=== PATIENT | female | born 2000 ===

== ENCOUNTER 2018-10-02 23:04 | Emergency (ER) | payer SELFPAY ==
[2018-10-02 23:23] VITALS: PULSE 100
[2018-10-02] MEDS ORDERED: Albuterol 0.083% Inhal Sol (2.5 mg/3 mL) UD INH SCH (23:45)
--- NOTE | 2018-10-03 00:36 | C.PDOC ---
Time Seen by Provider: 10/02/18 23:24 Chief Complaint (Nursing): Rib Injury Past Medical History Vital Signs: Last Vital Signs Temp 99.0 F 10/02/18 23:21 Pulse 100 H 10/02/18 23:21 Resp 18 10/02/18 23:21 BP 103/62 10/02/18 23:21 Pulse Ox 98 10/02/18 23:21 Primary Care Provider: FAMILY PROVIDER,NO - Social History Hx Alcohol Use: No Hx Substance Use: No - Immunization History Hx Tetanus Toxoid Vaccination: No Hx Influenza Vaccination: No Hx Pneumococcal Vaccination: No ED Course And Treatment O2 Sat by Pulse Oximetry: 98 Disposition - Disposition Forms: [employer] (Setswana)
--- NOTE | 2018-10-03 00:40 | C.PDOC ---
History Of Present Illness 17 year old female presents to the ER with intermittent chest tightness and SOB for the past few weeks associated with cough "for a long time". Patient states she hit her left rib today with the corner of a drawer while opening it causing increased pain. Denies fever, sick contact, or recent travel. Time Seen by Provider: 10/02/18 23:24 Chief Complaint (Nursing): Rib Injury History Per: Patient History/Exam Limitations: no limitations Onset/Duration Of Symptoms: Days Current Symptoms Are (Timing): Still Present Location Of Pain: None Sick Contacts (Context): None Associated Symptoms: Cough, Other (SOB). denies: Fever Recent travel outside of the [place]: No Past Medical History Reviewed: Historical Data, Nursing Documentation, Vital Signs Vital Signs: Last Vital Signs Temp 99.0 F 10/02/18 23:21 Pulse 100 H 10/02/18 23:21 Resp 18 10/02/18 23:21 BP 103/62 10/02/18 23:21 Pulse Ox 98 10/02/18 23:21 Primary Care Provider: FAMILY PROVIDER,NO Family History: States: Unknown Family Hx - Social History Hx Alcohol Use: No Hx Substance Use: No - Immunization History Hx Tetanus Toxoid Vaccination: No Hx Influenza Vaccination: No Hx Pneumococcal Vaccination: No Review Of Systems Constitutional: Negative for: Fever, Chills ENT: Negative for: Nose Discharge, Nose Congestion Respiratory: Positive for: Cough, Shortness of Breath Musculoskeletal: Positive for: Other (Left rib pain) Physical Exam - Physical Exam Appears: Non-toxic Skin: Normal Color, Warm Head: Atraumatic, Normacephalic Eye(s): bilateral: Normal Inspection Oral Mucosa: Moist Chest: Symmetrical, Other (No tenderness, ecchymosis, crepitus, or erythema) Cardiovascular: Rhythm Regular Respiratory: Decreased Breath Sounds (Minimal), No Rales, No Rhonchi, Wheezing (Expiratory) Neurological/Psych: Oriented x3, Normal Speech ED Course And Treatment O2 Sat by Pulse Oximetry: 98 (room air) Pulse Ox Interpretation: Normal - Radiology CXR Interpretation: Yes: No Acute Disease. No: Infiltrates - Other Rad Left rib x-ray X-Ray: Interpreted by Me, Viewed By Me Interpretation: No acute fracture or dislocation Progress Note: Left rib x-ray ordered, results were negative. Pt with no PMHX o f Asthma with nocturnal cough, chest tightness intermittently, now with exp wheezes. Albuterol nebulizer x 2 and prednisone administered. Patient is resting comfortably in no acute distress with clear breath sounds, vitals are stable, will discharge home with Rx and instructions to follow up with PMD. Reassessment Condition: Improved Disposition Counseled Patient/Family Regarding: Diagnosis, Need For Followup, Rx Given - Disposition Referrals: [facility] [Outside] Disposition: HOME/ ROUTINE Disposition Time: 00:36 Condition: STABLE Additional Instructions: Increase PO fluids Take all medications as prescribed' Follow up wth PMD Return to ER if worse Prescriptions: Albuterol HFA [Ventolin HFA 90 mcg/actuation (8 g)] 2 puff IH [id number] #1 inhaler Benzonatate [Tessalon Perles] 200 mg PO TID #14 sgl Cetirizine HCl [Zyrtec] 10 mg PO DAILY #14 capsule predniSONE [Prednisone] 40 mg PO DAILY #8 tab Instructions: Viral Upper Respiratory Infection, Adult (DC) Forms: [employer] (Malaysian) - Clinical Impression Clinical Impression: Upper respiratory infection, Chest wall pain, Contusion of rib on left side - PA / [employer] / Resident Statement MD/DO has reviewed & agrees with the documentation as recorded. - Scribe Statement The provider has reviewed the documentation as recorded by the Scribantonio Ochoa All medical record entries made by the Scribe were at my direction and pe rsonally dictated by me. I have reviewed the chart and agree that the record accurately reflects my personal performance of the history, physical exam, medical decision making, and the department course for this patient. I have also personally directed, reviewed, and agree with the discharge instructions and disposition.
[2018-10-03 00:58] VITALS: BP 105/61; RESP 19; TEMP 98.9
[2018-10-03 00:59] VITALS: O2SAT 98
--- NOTE | 2018-10-03 08:40 | RAD ---
Date of service: 10/02/2018 PROCEDURE: Radiographs of the Chest and Left Ribs. HISTORY: cough, SOB, left rib injury COMPARISON: None available. TECHNIQUE: Frontal radiograph of the chest and multiple oblique radiographs of the left ribs were obtained. 4 views obtained. FINDINGS: LEFT RIBS: No fracture or focal lesion visualized. LUNGS: Clear. PLEURA: No pneumothorax or pleural fluid. CARDIOVASCULAR: Normal cardiac size. No pulmonary vascular congestion. No aortic atherosclerotic calcification present OTHER FINDINGS: None. IMPRESSION: Unremarkable radiographs of the chest and left ribs. No left rib fracture. Comments: No preliminary ER impression at this time.
== END 2018-10-03 00:58 | disposition home or self-care (01) ==
LOC: C.ER 23:04
DX: J06.9 Acute upper respiratory infection, unspecified (principal); R07.89 Other chest pain; S20.212A Contusion of left front wall of thorax, initial encounter; W22.8XXA Striking against or struck by other objects, initial encounter